=== PATIENT | male | born 1990 | race Caucasian/White ===

== ENCOUNTER 2025-05-21 20:50 | Inpatient (IN) | payer BC, OTHER ==
[~2025-05-21] VITALS: Ht 165.1 cm; Wt 108.0 kg
[2025-05-21 21:33] LABS: Hematocrit 42.9 % (41.0-53.0); Hemoglobin 15.0 g/dL (13.5-17.5); Mean Corpuscular Hemoglobin 30.7 pg (28.0-32.0); Mean Corpuscular Volume 87.9 fL (80.0-100.0); Nucleated Red Blood Cells % 0.2 %
--- NOTE | 2025-05-21 21:38 | DVH ---
EXAM: XY CHEST TWO VIEWS ROUTINE CLINICAL HISTORY: cp and sob TECHNIQUE: Frontal and lateral views of the chest WID: COMPARISON: None FINDINGS: Lines and tubes: None Chest: The heart size and pulmonary vasculature is within normal limits. No pleural effusion, pneumothorax, or consolidation. The osseous structures are grossly intact. IMPRESSION: No acute cardiopulmonary abnormality.
[2025-05-21 21:44] LABS: Potassium 4.0 mmol/L (3.5-5.1); Sodium 143 mmol/L (136-145)
[2025-05-21 21:45] LABS: Anion Gap 11 (5-15); Calcium 10.1 mg/dL (8.7-10.4); Carbon Dioxide 24 mmol/L (20-31)
[2025-05-21 21:50] LABS: BUN/Creatinine Ratio 13.0 (10.0-20.0); Blood Urea Nitrogen 14 mg/dL (9-23)
[2025-05-21 21:52] LABS: Chloride 108 mmol/L (98-107); Glucose 133 mg/dL (74-106)
--- NOTE | 2025-05-21 22:04 | ED.PDOC ---
History of Present Illness HPI Comments 35 y/o obese M presents with c/c of chest pain, heart fluttering, and bilateral leg pain. Patient reports additional sudden onset of symptoms at around 1900, this evening, after 2x week history of bilateral leg and abdominal swelling. Significant history of anxiety, GERD, seizures, "PVC's," and former tobacco cigarette user. Current medications include: pantoprazole and Keppra. Denies any prior history of symptoms in the past and any notable cardiac history, with exception of consultation for heart ablation for his PVC's. Patient denies any shortness of breath, nausea, vomiting, fever, chills, or further associated symptoms. PCP is aware of swelling complaints, and patient has an upcoming appointment in the next few weeks. Chief Complaint: Chest Pain Time Seen by MD: 21:40 Primary Care Provider: CHARLENE San Notes: Nurses Notes, Medications, Allergies Allergies: Coded Allergies: Promethazine (Verified Adverse Reaction, Severe, SWELLING, RASH, 09/01/10) Erythromycin (Verified Adverse Reaction, Unknown, 09/01/10) Sulfisoxazole (Verified Adverse Reaction, Unknown, 09/01/10) Uncoded Allergies: TREE NUTS (Allergy, HIVES, 10/20/11) Information Source: Patient Mode of Arrival: Ambulatory Severity: Moderate Timing: Hours Duration: Since onset Prehospital treatment: None Past Medical History PAST MEDICAL HISTORY: Anxiety, GERD, Seizures (On Keppra ) Past Medical History (Other): PVC's Surgical History (Other): Tendon repair Family History Family History: No family hx of DM Family History (Other): Hypercholesterolemia Social History Smoker: Cigarettes, Less Than 1 Pack/Day Alcohol: Occasionally Drugs: Denies Drug Use Lives In: Home All Other Systems: Reviewed and Negative (Comprehensive systems review obtained and negative except for what is stated in the HPI.) Physical Exam General Appearance: No Apparent Distress, Obese HEENT: Normal ENT Inspection, Pharynx Normal, TMs Normal Neck: Full Range of Motion, Non-Tender, Normal, Normal Inspection Respiratory: Chest Non-Tender, Lungs Clear, No Accessory Muscle Use, No Respiratory Distress, Normal Breath Sounds Cardiovascular: No Edema, No JVD, No Murmur, No Gallop, Normal Peripheral Pulses, Regular Rate/Rhythm Breast Exam: Deferred Gastrointestinal: No Organomegaly, Non Tender, No Pulsatile Mass, Normal Bowel Sounds, Soft Genitalia: Deferred Pelvic: Deferred Rectal: Deferred Extremities: No calf tenderness, Normal capillary refill, Normal inspection, Normal range of motion, Non-tender, No pedal edema Musculoskeletal : Apperance: Normal Neurologic: Alert, process control programmer II-XII nml as Tested, No Motor Deficits, Normal Affect, Normal Mood, No Sensory Deficits Cerebellar Function: Normal Reflexes: Normal Skin: Dry, Normal Color, Warm Lymphatic: No Adenopathy Was a procedure done? Was a procedure done?: No EKG EKG #1: Pulse Rate (adult): 102 Hustler: Normal Cardiac Rhythm: ST Block: None Hypertrophy: None ST: Normal EKG #2: Pulse Rate (adult): 95 Hustler: Normal Cardiac Rhythm: NSR Block: None Hypertrophy: None ST: Normal Differential Dx Considerations may include: LA, PE, ACS, URI, PNA, gastritis, gastroenteritis, GERD, fluid retention, ascites, atypical chest pain, among others X-Ray, Labs, Meds, VS Vital Signs Date Time Temp Pulse Resp B/P (MAP) Pulse Ox O2 Delivery O2 Flow Rate FiO2 05/21/25 22:04 95 05/21/25 21:48 95 05/21/25 20:55 102 05/21/25 20:50 98.4 94 18 128/82 (97) 96 98.4 Lab Test 05/21/25 21:52 05/21/25 20:54 Range/Units Troponin I High Sensitivity < 3 L < 3 L </=54 ng/L White Blood Count 7.8 4.4-10.8 10^3/uL Red Blood Count 4.88 4.5-5.90 10^6/uL Hemoglobin 15.0 13.5-17.5 g/dL Hematocrit 42.9 41.0-53.0 % Mean Corpuscular Volume 87.9 80.0-100.0 fL Mean Corpuscular Hemoglobin 30.7 28.0-32.0 pg Mean Corpuscular Hemoglobin Concent 34.9 32.0-36.0 g/dL Red Cell Distribution Width 13.0 11.8-14.3 % Platelet Count 341 140-450 10^3/uL Mean Platelet Volume 7.5 6.9-10.8 fL Neutrophils (%) (Auto) 54.6 37.0-80.0 % Lymphocytes (%) (Auto) 36.9 10.0-50.0 % Monocytes (%) (Auto) 6.0 0.0-12.0 % Eosinophils (%) (Auto) 1.9 0.0-7.0 % Basophils (%) (Auto) 0.6 0.0-2.0 % Neutrophils # (Auto) 4.2 1.6-8.6 10 ^3/uL Lymphocytes # (Auto) 2.9 0.4-5.4 10 ^3/uL Monocytes # (Auto) 0.5 0-1.3 10 ^3/uL Eosinophils # (Auto) 0.1 0-0.8 10 ^3/uL Basophils # (Auto) 0 0-0.2 10 ^3/uL Nucleated Red Blood Cells 0.2 % Sodium Level 143 136-145 mmol/L Potassium Level 4.0 3.5-5.1 mmol/L Chloride Level 108 H 98-107 mmol/L Carbon Dioxide Level 24 20-31 mmol/L Anion Gap 11 5-15 Blood Urea Nitrogen 14 9-23 mg/dL Creatinine 1.08 0.700-1.30 mg/dL Glomerular Filtration Rate Calc 93 >90 mL/min BUN/Creatinine Ratio 13.0 10.0-20.0 Serum Glucose 133 H 74-106 mg/dL Calcium Level 10.1 8.7-10.4 mg/dL B-Type Natriuretic Peptide 6.44 0-100 pg/mL [place] [id number] Ph: [phone] DIAGNOSTIC IMAGING Diagnostic Imaging Report : [id number] Signed PATIENT: MICHELLE DIEGO ACCT: [id number] UNIT: [id number] : 1990 LOC: ER ROOM / BED: / AGE / SEX: 35 / M ADM STATUS: REG ER SERVICE [id number] ORDERING PHYSICIAN: NIMCO FERMIN MD PROCEDURE(s): CXR2 - CHEST TWO VIEWS ROUTINE REASON: cp and sob ORDER NUMBER(s): [id number], ACCESSION NUMBER(s): [id number] EXAM: XY CHEST TWO VIEWS ROUTINE CLINICAL HISTORY: cp and sob TECHNIQUE: Frontal and lateral views of the chest WID: COMPARISON: None FINDINGS: Lines and tubes: None Chest: The heart size and pulmonary vasculature is within normal limits. No pleural effusion, pneumothorax, or consolidation. The osseous structures are grossly intact. IMPRESSION: No acute cardiopulmonary abnormality. ATED BY: YOLIE SMITH MD DICTATED DATE/TIME: 05/21/252134 SIGNED BY: YOLIE SMITH MD SIGNED DATE/TIME: 05/21/252134 CC: Time of 1ST Reevaluation: 22:10 Reevaluation 1ST: Unchanged Patient Education/Counseling: Diagnosis, Treatment Family Education/Counseling: No Family Present Additional Information Previous visits reviewed: January 10, 2010 and March 02, 2015 encounters for nausea/generalized weakness and sciatica, respectively. The following tests were ordered, and results were reviewed by me: BMP, CBC, BNP, CXR, EKG, troponin Additional Information was gathered from interviewing the following independent historians: N/A I reviewed and agreed with the following test results read by other providers: CXR I discussed treatment and results with medical personnel and: patient SEPSIS Sepsis Screen Date sepsis recognized/suspect: May 21, 2025 Time Sepsis recognized/suspect: 2049 Recent Procedure: No On Antibiotic Therapy: No Respiratory Rate >20: No Heart Rate >90: No Temp<36 C (96.8 F) or >38.3 C: No SBP <90 or MAP <65 mmHG: No New Acute Mental Status Change: No Is the patient on CPAP, BIPAP,: No Physician Orders Electrocardigram (05/21/25 20:57) Electrocardigram (05/21/25 21:57) Electrocardigram (05/21/25 23:57) Chest Two Views Routine (05/21/25 21:08) Vital Signs Date Time Temp Pulse Resp B/P (MAP) Pulse Ox O2 Delivery O2 Flow Rate FiO2 05/21/25 22:04 95 05/21/25 21:48 95 05/21/25 20:55 102 05/21/25 20:50 98.4 94 18 128/82 (97) 96 98.4 Laboratory Tests Test 05/21/25 20:54 White Blood Count 7.8 10^3/uL (4.4-10.8) Departure 1 Departure Time of Disposition: 23:22 (Patient presented with lower extremity edema that was concerning for possible STEMI, ACS, PE, Pneumonia, Muscle Strain, COPD, Dissection, Acute on Chronic systolic and Diastolic dysfunction. Data: 1. I ordered and reviewed the result of at least 3 labs including a CBC, BMP, and Troponin. 2. I independently interpreted the following tests: EKG which shows sinus arrhthmia and Chest X-ray which shows cardiomegaly.Risk:This patient has a high risk of morbidity due to further diagnostic testing or treatment and may suffer from an acute cardiac or respiratory disorder but is most consitent with an acute chf exacerbation. Patient should be admitted for further workup and possible expert consultation. ) Impression: Primary Impression: Lower extremity edema Additional Impression: Generalized weakness Disposition: ADMITTED INPATIENT Admit to: Med Surg Condition: Guarded Critical Care Note Critical Care Time?: No Stability Stability form required: No Heart Score Heart Score: Heart Score Response (Comments) Value History Moderate Suspicious 1 EKG Normal 0 Age <45 0 Risk Factors 1 or 2 risk factors 1 Troponin Normal limit 0 Total 2 I personally scribed for BEVERLY RAINEY MD ([email or web address]) on 05/21/25 at 22:04. Electronically submitted by Matthew Ortega ([email or web address]). BEVERLY RAINEY MD May 21, 2025 22:04
[2025-05-22] VITALS (10 sets, daily range): BP systolic 115–138; BP diastolic 55–100; PULSE 72–93; RESP 16–20; TEMP 97.7–98.7; O2SAT 95–99
[2025-05-22] MEDS ORDERED: MORPHINE SULFATE INJ 2 MG/ml SYRG IV PRN (00:15)
[2025-05-22] MEDS ORDERED: NITROGLYCERIN 0.4 MG SL TAB SL PRN (00:15)
--- NOTE | 2025-05-22 00:30 | DVHHP2 ---
History of Present Illness History of Present Illness Patient is 35 years old male with past medical history of seizure, anxiety, GERD, PVCs, IBS came with a complaint of chest pain. As per patient he started having chest pain around 7:00 p.m. last night, sudden onset, left-sided chest pain, 10, crampy in nature, lasted for 15 minutes, increased with walking. Patient also endorsed occasional palpitation for last 3-4 days. As per patient his legs are swollen for last 3-4 days, patient also reported gaining weight almost 30 lb in last 2 weeks. On further inquiry patient reports having altered bowel movement. Patient reported that he has been diagnosed with PVCs since 2020, saw a saw setter who recommended for cardiac ablation therapy. Patient went for evaluation for cardiac ablation therapy but as he did not have frequent PVCs, so no cardiac ablation was done as per patient. Initial lab workup revealed negative for troponin I, BNP 6.44. EKG revealed sinus tachycardia with a rate 102, no PVCs. Past Medical History seizure, anxiety, GERD, PVCs, IBS Past Surgical History Right Leg surgery Family History Mom has diabetes mellitus, dad has hypertension Past Social History , smokes cigarettes half a pack to 2 pack per day, occasional alcoholic, denies substance abuse, lives with . Meds Keppra 750 mg in the morning and 500 mg at night, pantoprazole Review of Systems Review of Systems Allergy- NKDA Patient was seen today at the bedside. Respiratory denies cough or or wheezing Gastrointestinal- denies any rectal bleeding, nausea or vomiting Musculoskeletal-denies acute joint swelling or tenderness or redness Neurological- denies acute dysarthria, dysphagia, change in vision Psychiatry- denies depression or SI or HI Skin- denies acute rash or purpura Allergies: Coded Allergies: Promethazine (Verified Adverse Reaction, Severe, SWELLING, RASH, 09/01/10) Erythromycin (Verified Adverse Reaction, Unknown, 09/01/10) Sulfisoxazole (Verified Adverse Reaction, Unknown, 09/01/10) Uncoded Allergies: TREE NUTS (Allergy, Unknown, HIVES, 05/22/25) Medications Current Medications Medications Dose Ordered Sig/Rosalie Route Start Time Stop Time Status Last Admin Dose Admin Sodium Chloride 10 ml Q8HR IV 05/22/25 06:00 Nitroglycerin 0.4 mg Q5MINP PRN SL 05/22/25 00:15 Morphine Sulfate 2 mg Q30M PRN IV 05/22/25 00:15 Exam Vital Signs Vital Signs Date Time Temp Pulse Resp B/P (MAP) Pulse Ox O2 Delivery O2 Flow Rate FiO2 05/21/25 23:47 92 05/21/25 23:43 98.3 20 128/85 (99) 95 98.3 Exam General examination- awake, alert, not in any distress HEENT- PEERLA, no acute nasal discharge Cardiovascular- S1-S2 audible, rate and rhythm regular, no murmur Respiratory- CTAB, no wheeze or rhonchi Gastrointestinal-nontender, bowel sound+. Nondistended Musculoskeletal-no acute joint swelling or tenderness or redness Lower extremity- no leg edema Neurological- cranial nerves intact, no acute dysarthria or dysphagia Psychiatry- denies depression or SI or HI Skin- no acute rash or purpura Labs/Xrays Labs Test 05/21/25 21:52 05/21/25 20:54 Range/Units Troponin I High Sensitivity < 3 L </=54 ng/L White Blood Count 7.8 4.4-10.8 10^3/uL Red Blood Count 4.88 4.5-5.90 10^6/uL Hemoglobin 15.0 13.5-17.5 g/dL Hematocrit 42.9 41.0-53.0 % Mean Corpuscular Volume 87.9 80.0-100.0 fL Mean Corpuscular Hemoglobin 30.7 28.0-32.0 pg Mean Corpuscular Hemoglobin Concent 34.9 32.0-36.0 g/dL Red Cell Distribution Width 13.0 11.8-14.3 % Platelet Count 341 140-450 10^3/uL Mean Platelet Volume 7.5 6.9-10.8 fL Neutrophils (%) (Auto) 54.6 37.0-80.0 % Lymphocytes (%) (Auto) 36.9 10.0-50.0 % Monocytes (%) (Auto) 6.0 0.0-12.0 % Eosinophils (%) (Auto) 1.9 0.0-7.0 % Basophils (%) (Auto) 0.6 0.0-2.0 % Neutrophils # (Auto) 4.2 1.6-8.6 10 ^3/uL Lymphocytes # (Auto) 2.9 0.4-5.4 10 ^3/uL Monocytes # (Auto) 0.5 0-1.3 10 ^3/uL Eosinophils # (Auto) 0.1 0-0.8 10 ^3/uL Basophils # (Auto) 0 0-0.2 10 ^3/uL Nucleated Red Blood Cells 0.2 % Sodium Level 143 136-145 mmol/L Potassium Level 4.0 3.5-5.1 mmol/L Chloride Level 108 H 98-107 mmol/L Carbon Dioxide Level 24 20-31 mmol/L Anion Gap 11 5-15 Blood Urea Nitrogen 14 9-23 mg/dL Creatinine 1.08 0.700-1.30 mg/dL Glomerular Filtration Rate Calc 93 >90 mL/min BUN/Creatinine Ratio 13.0 10.0-20.0 Serum Glucose 133 H 74-106 mg/dL Calcium Level 10.1 8.7-10.4 mg/dL B-Type Natriuretic Peptide 6.44 0-100 pg/mL Assessment/Plan Assessment/Plan Assessment and plan # Acute chest pain, rule out acute coronary syndrome -EKG with sinus tachycardia, no PVCs -troponin I with a normal limit -continue aspirin 80 mg p.o. daily Continue atorvastatin 40 mg p.o. q.h.s. -pending echo 2D # seizure disorder -continue Keppra 750 mg p.o. a.m. and 500 mg p.o. at night # bilateral leg swelling -Doppler study of the bilateral lower extremity -negative for DVT # history of PVCs-EKG with sinus rhythm, no PVC # weight gain # anxiety # IBS -Monitor bowel habit # GERD -continue pantoprazole 40 mg p.o. daily PCP-Lazara Sapp MD Cardiology-Vicky Xie Goals of care, Code status ; discussed with >15 minutes PUD prophylaxis: Pantoprazole DVT prophylaxis: Patient ambulating Plan discussed with Dr. Grimes , nursing staff, Total time spent on patient evaluation, chart review, assessment and plan, discussion discussion >35 minutes Plan discussed with: Patient, Other (RN) My Orders Orders - [facility] [place] RESIDENT Procedure Category Date Status Time Admit ADMIT 05/22/25 Transmitted 00:14 Code Status CODE 05/22/25 Transmitted 00:14 Sodium Chloride Lock PHA 05/22/25 Logged (Saline Lock Ns) 06:00 Complete Blood Count LAB 05/23/25 Verified 04:00 Comprehensive LAB 05/23/25 Verified Metabolic Panel 04:00 Echo 2d Mode Cardiac US 05/22/25 Logged DOP 00:14 Nitroglycerin PHA 05/22/25 Logged Sublingual (Ntrostat 00:15 Morphine Sulfate PHA 05/22/25 Logged Injection 00:15 Stat Ekg For Chest LILIAN 05/22/25 In Process Pain 00:14 Notify Md Of Changes [facility] 05/22/25 In Process From Base 00:14 Diesel Technology Instructor For LILIAN 05/22/25 In Process 24 Hours 00:14 Aspirin Tablet PHA 05/22/25 Verified 10:00 Aspirin Tablet [facility] 05/22/25 Verified 00:30 Atorvastatin (Lipitor) PHA 05/22/25 Verified 22:00 Atorvastatin (Lipitor) PHA 05/22/25 Verified 00:30 Pantoprazole Tablet [facility] 05/22/25 Verified (Protonix Tablet) 00:30 Pantoprazole Tablet [facility] 05/22/25 Verified (Protonix Tablet) 06:00 Levetiracetam Tablet [facility] 05/22/25 Verified (Keppra Tablet) 08:00 Levetiracetam Tablet [facility] 05/22/25 Verified (Keppra Tablet) 20:00 Date of Service: May 22, 2025 Billing Provider: PEPE GRIMES MD Common Visit Codes: [id number] INP/OBS CARE (HIGH) Secondary Visit Codes: [id number] CARE PLAN 30 MINUTES [facility] RESIDENT May 22, 2025 00:30
--- NOTE | 2025-05-22 01:35 | DVH ---
Bilateral lower extremity venous duplex Clinical History: History of bilateral leg swelling Comparison: None Technique: Duplex Doppler evaluation of the deep venous systems of both lower extremities from the common femora l veins to the popliteal veins including color Doppler and spectral/pulsed waveform analysis was perf ormed. Findings: RIGHT SIDE: The common femoral vein demonstrates appropriate compressibility and waveform variability. There is compressibility/patency of the great saphenous vein at the proximal thigh. The femoral vein demonstrates appropriate compressibility and waveform variability. The deep femoral vein demonstrates appropriate compressibility and waveform variability. The popliteal vein demonstrates appropriate compressibility and waveform variability. There is normal compressibility at the tibioperoneal trunk. LEFT SIDE: The common femoral vein demonstrates appropriate compressibility and waveform variability. There is compressibility/patency of the great saphenous vein at the proximal thigh. The femoral vein demonstrates appropriate compressibility and waveform variability. The deep femoral vein demonstrates appropriate compressibility and waveform variability. The popliteal vein demonstrates appropriate compressibility and waveform variability. There is normal compressibility at the tibioperoneal trunk. Impression: 1. No right or left femoropopliteal venous thrombosis.
--- NOTE | 2025-05-22 01:36 | ECG ---
[facility] Test Date: 2025-05-21 Test Time: 20:55:46 Pat Name: MICHELLE DIEGO Department: ED Room: 0277T Gender: M Communication Specialist: IAN : 1990 Requested By: BEVERLY RAINEY Order Number: [id number] Reading MD: Jose Dunne Measurements Intervals [place] Rate: 102 P: 52 MD: 160 QRS: 13 QRSD: 76 T: 47 QT: 351 QTc: 458 Interpretive Statements Sinus tachycardia Electronically Signed On 05-24-2025 9:51:00 PDT by Jose Dunne Please click the below link to view image of tracing.
--- NOTE | 2025-05-22 01:37 | ECG ---
[facility] Test Date: 2025-05-21 Test Time: 23:47:34 Pat Name: MICHELLE DIEGO Department: ER Room: 0277T Gender: M Gyroscopic Engineering Technician: RAFITA : 1990 Requested By: BEVERLY RAINEY Order Number: [id number] Reading MD: Jose Dunne Measurements Intervals [place] Rate: 92 P: 48 KS: 157 QRS: 3 QRSD: 71 T: 47 QT: 356 QTc: 441 Interpretive Statements Sinus rhythm Electronically Signed On 05-24-2025 9:51:42 PDT by Jose Dunne Please click the below link to view image of tracing.
[2025-05-22] MEDS: ATORVASTATIN 20 MG TAB PO ONE (02:01)
[2025-05-22] MEDS: PANTOPRAZOLE 40 MG TAB PO ONE (02:02)
[2025-05-22] MEDS ORDERED: PANT40TA2 PO (04:13)
[2025-05-22] MEDS ORDERED: LEVE500T40 PO (04:13)
[2025-05-22] MEDS: SODIUM CHLOR 0.9% PF (SALINE LOCK) 10ML VIAL/SYR IV SCH (05:55)
[2025-05-22] MEDS: PANTOPRAZOLE 40 MG TAB PO SCH (05:55)
--- NOTE | 2025-05-22 06:14 | ECG ---
[facility] Test Date: 2025-05-21 Test Time: 21:48:50 Pat Name: MICHELLE DIEGO Department: ED Room: 0277T Gender: M Network Operations Center Technician: angely : 1990 Requested By: BEVERLY RAINEY Order Number: [id number] Reading MD: Jose Dunne Measurements Intervals [place] Rate: 95 P: 29 RI: 157 QRS: 9 QRSD: 78 T: 54 QT: 357 QTc: 449 Interpretive Statements Sinus rhythm ST elev, probable normal early repol pattern Baseline wander in lead(s) II,III,aVF Electronically Signed On 05-24-2025 9:51:16 PDT by Jose Dunne Please click the below link to view image of tracing.
[2025-05-22 06:38] LABS: Urine Protein, UAD Negative (Negative)
[2025-05-22] MEDS: levETIRAcetam 500 MG TAB PO SCH ×2 (08:06→20:58)
[2025-05-22 10:28] LABS: Amphetamine Screen, Urine Neg (NEGATIVE); Barbiturate Scree,Urine Neg (NEGATIVE); Benzodiazephine Screen, Urine Neg (NEGATIVE); Cannabinoid Screen, Urine Neg (NEGATIVE); Cocaine Screen, Urine Neg (NEGATIVE); Opiate Scree,Urine Neg (NEGATIVE); Phencyclidine Screen, Urine Neg (NEGATIVE)
[2025-05-22] MEDS ORDERED: levETIRAcetam 500 MG TAB PO SCH (16:30)
[2025-05-22] MEDS: ATORVASTATIN 20 MG TAB PO SCH (20:58)
[2025-05-23] VITALS (8 sets, daily range): BP systolic 109–134; BP diastolic 79–88; PULSE 74–94; RESP 16–20; TEMP 97.9–98.6; O2SAT 95–98
[2025-05-23 06:30] LABS: Hematocrit 40.5 % (41.0-53.0); Hemoglobin 14.2 g/dL (13.5-17.5); Mean Corpuscular Hemoglobin 30.5 pg (28.0-32.0); Mean Corpuscular Volume 87.1 fL (80.0-100.0); Nucleated Red Blood Cells % 0.1 %
[2025-05-23 06:46] LABS: Albumin 4.5 g/dL (3.2-4.8); Alkaline Phosphatase 52 U/L (46-116); Anion Gap 11 (5-15); BUN/Creatinine Ratio 14.6 (10.0-20.0); Blood Urea Nitrogen 14 mg/dL (9-23); Calcium 10.0 mg/dL (8.7-10.4); Carbon Dioxide 24 mmol/L (20-31); Glucose 89 mg/dL (74-106); Potassium 3.9 mmol/L (3.5-5.1); Sodium 142 mmol/L (136-145); Total Protein 6.7 g/dL (5.7-8.2)
[2025-05-23 06:47] LABS: Bilirubin, Total 0.7 mg/dL (0.2-1.0)
[2025-05-23 07:05] LABS: Alanine Aminotransferase 106 U/L (7-40); Chloride 107 mmol/L (98-107)
[2025-05-23] MEDS: levETIRAcetam 500 MG TAB PO SCH (09:04)
[2025-05-23] MEDS ORDERED: levETIRAcetam 500 MG TAB PO SCH (10:00)
--- NOTE | 2025-05-23 11:56 | DVHPN2 ---
Reviewed: Care Plan, H&P, Labs, Medications, Previous Orders, Radiology Changes from previous H/P or p: No Changes Objective Vitals Vital Signs Date Time Temp Pulse Resp B/P (MAP) Pulse Ox O2 Delivery O2 Flow Rate FiO2 05/23/25 09:00 98.1 77 20 118/82 (94) 96 98.1 05/23/25 07:49 Room Air* 0 21 Intake/Output Intake and Output 05/23/25 07:00 Intake Total 600 ml Balance 600 ml Intake Oral 600 ml # Voids 6 # Bowel Movements 2 Medications Current Medications Medications Dose Ordered Sig/Rosalie Route Start Time Stop Time Status Last Admin Dose Admin Sodium Chloride 10 ml Q8HR IV 05/22/25 06:00 05/23/25 09:03 10 ML Nitroglycerin 0.4 mg Q5MINP PRN SL 05/22/25 00:15 Morphine Sulfate 2 mg Q30M PRN IV 05/22/25 00:15 Aspirin 81 mg DAILY PO 05/22/25 10:00 05/23/25 09:02 81 MG Atorvastatin Calcium 40 mg HS PO 05/22/25 22:00 05/22/25 20:58 40 MG Pantoprazole Sodium 40 mg DAILY@0600 PO 05/22/25 06:00 05/23/25 05:08 40 MG Levetiracetam 750 mg DAILY PO 05/23/25 10:00 05/23/25 09:04 750 MG Levetiracetam 500 mg HS PO 05/22/25 22:00 05/22/25 20:58 500 MG Laboratory Results Laboratory Tests 05/23/25 05:28 Chemistry Test 05/23/25 05:28 Albumin 4.5 g/dL (3.2-4.8) Calcium Level 10.0 mg/dL (8.7-10.4) Total Protein 6.7 g/dL (5.7-8.2) LFT Test 05/23/25 05:28 Alanine Aminotransferase (ALT) 106 U/L (7-40) H Alkaline Phosphatase 52 U/L (46-116) Aspartate Amino Transferase (AST) 64 U/L (13-40) H Total Bilirubin 0.7 mg/dL (0.2-1.0) Urinalysis Test 05/22/25 05:43 Urine Color Yellow (Yellow) Urine Clarity Clear (Clear) Urine pH 6.0 (5.0-9.0) Urine Specific [place] 1.027 (1.001-1.035) Urine Protein Negative (Negative) Urine Ketones Negative (Negative) Urine Blood Negative /uL (Negative) Urine Nitrite Negative (Negative) Urine Bilirubin Negative (Negative) Urine Urobilinogen 2 mg/dL (Negative) H Urine Leukocyte Esterase Negative /uL (Negative) Urine RBC 1 /hpf (0 - 3) Urine Microscopic WBC 1 /HPF (0-3) Urine Squamous Epithelial Cells None seen /hpf (<5) Urine Bacteria None seen /hpf (None Seen) Urine Mucus Few (None Seen) Urine Glucose Normal mg/dL (Normal) Labs and/or images reviewed: Labs reviewed by me, Image(s) reviewed by me Assessment/Plan Assessment/Plan Acute chest pain rule out coronary artery disease troponin negative x3 aspirin Lipitor consult for Dr. Ksenia Angelo Bilateral leg edema History of PVCs Anxiety Irritable bowel syndrome GERD X-ray negative DVT ruled out Plan discussed with: Patient Date of Service: May 23, 2025 Billing Provider: CLARE DAIGLE MD Common Visit Codes: [id number] INP/OBS CARE(HIGH) CLARE DAIGLE MD May 23, 2025 11:56
--- NOTE | 2025-05-23 15:14 | DVHSR ---
APPROVED REPORT EXAM: Two-dimensional and M-mode echocardiogram with Doppler and color Doppler. Blood Pressure: 115/67 mmHg INDICATION Chest Pain RISK FACTORS Height: 5' 5", Weight: 229 DIMENSIONS LVDd4.9 (3.8-5.7cm)LA (2D)3.2 (1.9-4.0cm)Aortic Root4.1 (2.0-3.7cm) LVDs3.6 (2.5-4.0cm)LA (MM) (1.9-4.0cm)Aortic Cusp Exc2.2 (1.5-2.0cm) EF (%) 55.0 (55-70%)Rt. Atrium2.9 (1.9-4.0cm)Asc. Aorta cm IVSd1.1 (0.7-1.1cm)RV (D) (1.8-2.4cm) PWd1.0 (0.7-1.1cm) Mitral Valve MitralMitral Stenosis E wave1.00m/sMV Mean GR.mmHg A wave0.70m/sMV Peak GR.mmHg E/A ratio1.42D MVAcm2 Aortic Valve Aortic ValveAortic Stenosis V10.90m/Pradip Mean GR.3mmHg V21.10m/Pradip Peak GR.5mmHg LVOT Diameter2.4 (1.8-2.4cm)Doppler AVA3.70cm2 Pulmonic Valve V20.50m/s Conclusion lvef 60% by visual estimate normla rv function RV borderline enlarged normal atria no severe valve abnormalites noted
--- NOTE | 2025-05-23 18:04 | DVHINCON2 ---
Date Seen: May 23, 2025 Referring Physician MD Alexi Reason for Consultation Chest pain History of Present Illness This is a 35-year-old male patient who presents to the emergency room with chief complaint of chest pain. The patient reports that the chest pain began at 7:00 p.m. two days ago while sitting at home. He describes the pain as unprovoked, intermittent, squeezing in nature, left-sided and nonradiating. He denies any associated symptoms. He also complains of bilateral lower extremity edema for one week. Initial twelve lead electrocardiogram reveals sinus tachycardia without any significant ST segment changes. Troponin levels have been negative. Significant past medical history includes PVCs, hyperlipidemia, seizures, irritable bowel syndrome, Guillain-Bloomington syndrome in 2014, anxiety, tobacco use and obesity. Past Medical History Past medical history reviewed. No other significant than mentioned above. Past Surgical History Right leg tendon repair Family History Family history reviewed. Social History Patient has a 16 pack-year history, quit smoking approximately one month ago Denies any illicit drug use Denies any alcohol use Allergies: Coded Allergies: Promethazine (Verified Adverse Reaction, Severe, SWELLING, RASH, 09/01/10) Erythromycin (Verified Adverse Reaction, Unknown, 09/01/10) Sulfisoxazole (Verified Adverse Reaction, Unknown, 09/01/10) Uncoded Allergies: TREE NUTS (Allergy, Unknown, HIVES, 05/22/25) Home Meds Reported Medications Pantoprazole Sodium Sesquihydr (Protonix) 40 Mg Tab, 40 MG PO DAILY, #30 TAB 05/22/25 Levetiracetam (Keppra) 500 Mg Tab, 1.5 TAB PO BID for seizures, #180 TAB 3 Refills 05/22/25 Home Meds Home medications reviewed. Current Medications Current Medications Medications (Trade) Dose Ordered Sig/Rosalie Route PRN Reason Start Time Stop Time Status Last Admin Atorvastatin Calcium (Lipitor) 40 mg HS PO 05/22/25 22:00 05/22/25 20:58 Levetiracetam (Keppra Tablet) 750 mg DAILY PO 05/23/25 10:00 05/22/25 14:26 DC Levetiracetam (Keppra Tablet) 750 mg DAILY PO 05/23/25 10:00 05/23/25 09:04 Levetiracetam (Keppra Tablet) 500 mg HS PO 05/22/25 22:00 05/22/25 20:58 Review of Systems Constitutional: No symptom reported Ears, Nose, & Throat: No symptom reported Eyes: No symptom reported Neurological: No symptoms reported Pulmonary/Respiratory: No symptoms reported Cardiovascular: Chest pain Gastrointestinal: No symptom reported Genitourinary: No symptom reported Musculoskeletal: No symptom reported Skin: No symptom reported Psychiatric: No symptom reported Endocrine: No symptom reported Hematologic/Lymphatic: No symptom reported Vital Signs Vital Signs Date Time Temp Pulse Resp B/P (MAP) Pulse Ox O2 Delivery O2 Flow Rate FiO2 05/23/25 17:00 98.2 82 18 134/88 (103) 95 98.2 05/23/25 07:49 Room Air* 0 21 Physical Exam General Appearance: Cooperative. Well-developed. Well-nourished. No acute distress. Pulmonary/Respiratory: Clear, bilateral breaths sounds. Cardiovascular/Chest: Regular rate and rhythm. Peripheral Pulses: 2+ Radial (R). 2+ Radial (L). 2+ Pedal (R). 2+ Pedal (L) Abdominal Exam: Normal bowel sounds. Ankle Exam: Negative ankle edema Lower extremities: Negative lower extremity edema Neuro/Mental Status: A/OX4, coherent. Thoughts/Psych: Normal thought pattern. Appropriate mood and affect. Good judgment and insight. Appearance: No acute distress. Skin Exam: Normal inspection. Normal color. Warm and dry. Labs/Diagnostic Data Labs Test 05/23/25 05:28 05/22/25 05:43 05/22/25 04:29 05/21/25 21:52 Range/Units White Blood Count 6.6 4.4-10.8 10^3/uL Red Blood Count 4.65 4.5-5.90 10^6/uL Hemoglobin 14.2 13.5-17.5 g/dL Hematocrit 40.5 L 41.0-53.0 % Mean Corpuscular Volume 87.1 80.0-100.0 fL Mean Corpuscular Hemoglobin 30.5 28.0-32.0 pg Mean Corpuscular Hemoglobin Concent 35.1 32.0-36.0 g/dL Red Cell Distribution Width 12.9 11.8-14.3 % Platelet Count 292 140-450 10^3/uL Mean Platelet Volume 7.5 6.9-10.8 fL Neutrophils (%) (Auto) 56.1 37.0-80.0 % Lymphocytes (%) (Auto) 34.2 10.0-50.0 % Monocytes (%) (Auto) 7.0 0.0-12.0 % Eosinophils (%) (Auto) 2.2 0.0-7.0 % Basophils (%) (Auto) 0.5 0.0-2.0 % Neutrophils # (Auto) 3.7 1.6-8.6 10 ^3/uL Lymphocytes # (Auto) 2.3 0.4-5.4 10 ^3/uL Monocytes # (Auto) 0.5 0-1.3 10 ^3/uL Eosinophils # (Auto) 0.1 0-0.8 10 ^3/uL Basophils # (Auto) 0 0-0.2 10 ^3/uL Nucleated Red Blood Cells 0.1 % Sodium Level 142 136-145 mmol/L Potassium Level 3.9 3.5-5.1 mmol/L Chloride Level 107 98-107 mmol/L Carbon Dioxide Level 24 20-31 mmol/L Anion Gap 11 5-15 Blood Urea Nitrogen 14 9-23 mg/dL Creatinine 0.96 0.700-1.30 mg/dL Glomerular Filtration Rate Calc 107 >90 mL/min BUN/Creatinine Ratio 14.6 10.0-20.0 Serum Glucose 89 74-106 mg/dL Calcium Level 10.0 8.7-10.4 mg/dL Total Bilirubin 0.7 0.2-1.0 mg/dL Aspartate Amino Transferase (AST) 64 H 13-40 U/L Alanine Aminotransferase (ALT) 106 H 7-40 U/L Alkaline Phosphatase 52 46-116 U/L Total Protein 6.7 5.7-8.2 g/dL Albumin 4.5 3.2-4.8 g/dL Urine Color Yellow Yellow Urine Clarity Clear Clear Urine pH 6.0 5.0-9.0 Urine Specific [place] 1.027 1.001-1.035 Urine Protein Negative Negative Urine Ketones Negative Negative Urine Blood Negative Negative /uL Urine Nitrite Negative Negative Urine Bilirubin Negative Negative Urine Urobilinogen 2 H Negative mg/dL Urine Leukocyte Esterase Negative Negative /uL Urine RBC 1 0 - 3 /hpf Urine Microscopic WBC 1 0-3 /HPF Urine Squamous Epithelial Cells None seen <5 /hpf Urine Bacteria None seen None Seen /hpf Urine Mucus Few None Seen Urine Glucose Normal Normal mg/dL Urine Opiates Screen Neg NEGATIVE Urine Fentanyl Screen Neg NEGATIVE Urine Barbiturates Screen Neg NEGATIVE Urine Phencyclidine Screen Neg NEGATIVE Urine Amphetamines Screen Neg NEGATIVE Urine Benzodiazepines Screen Neg NEGATIVE Urine Cocaine Screen Neg NEGATIVE Urine Cannabinoids Screen Neg NEGATIVE Hemoglobin A1c 5.3 <5.7 % A1C Magnesium Level 2.0 1.6-2.6 mg/dL Troponin I High Sensitivity < 3 L </=54 ng/L Test 05/21/25 20:54 Range/Units B-Type Natriuretic Peptide 6.44 0-100 pg/mL Thyroid Stimulating Hormone (TSH) 1.83 0.55-4.78 uIU/mL Plasma/Serum Blood Alcohol < 3.0 <10 mg/dL Assessment Chest pain, likely noncardiac Hyperlipidemia History of PVCs Seizures Anxiety Transaminitis Tobacco use Obesity Plan/Recommendation We will continue with the following plan/recommendations (Dr. Mccormack): Case discussed with . A transthoracic echocardiogram revealed EF of 60% with no severe valve abnormalities noted. Given the patient's clinical presentation, unremarkable troponin level, and unremarkable twelve lead electrocardiogram, doubt ACS. There is no further inpatient cardiac workup indicated at this time. The patient states he does follow up with a milk delivery driver in the outpatient setting regarding his PVCs. Recommend for patient to follow up with a primary milk delivery driver. Thank you for allowing us to care for this patient. Please call with any questions or concerns. Critical care time spent: 44 minutes This medical document was created using an electronic medical record system with voice recognition software and computerized dictation system. Although this document has been carefully reviewed, there might still be some phonetic and typographical errors. Occasional wrong-word or ``sound-alike substitutions may have occurred due to the inherent limitations of voice recognition software. These areas are purely typographical due to imperfections of the software programs and do not reflect any compromise in the patient's medical care. Please read the chart carefully and recognize, using context, where these substitutions have occurred. Plan discussed with: Patient NYHA Physical activity limitations: NA Date of Service: May 23, 2025 Billing Provider: ADRIANA GONZALEZ Cardiology Common Codes: [id number] INP/OBS CARE (High) Cardiology Consultation Codes: [id number] CONSULT <45MIN ADRIANA GONZALEZ May 23, 2025 18:04
[2025-05-24 01:00] VITALS: BP 109/74; PULSE 75; RESP 17; TEMP 98.4; O2SAT 93
[2025-05-24 05:00] VITALS: BP 109/73; PULSE 65; RESP 18; TEMP 98.4; O2SAT 94
[2025-05-24 08:00] VITALS: PULSE 71
[2025-05-24 08:05] VITALS: PULSE 76; RESP 20; O2SAT 97
[2025-05-24 08:30] VITALS: BP 130/78; PULSE 76; RESP 20; TEMP 98.1; O2SAT 97
--- NOTE | 2025-05-24 09:20 | DVHPN2 ---
Reviewed: Care Plan, H&P, Labs, Medications, Previous Orders, Radiology Changes from previous H/P or p: No Changes Objective Vitals Vital Signs Date Time Temp Pulse Resp B/P (MAP) Pulse Ox O2 Delivery O2 Flow Rate FiO2 05/24/25 05:00 98.4 65 18 109/73 (85) 94 98.4 05/23/25 20:00 Room Air* 0 21 Intake/Output Intake and Output 05/24/25 07:00 Intake Total 1425 ml Balance 1425 ml Intake Oral 1425 ml # Voids 7 Medications Current Medications Medications Dose Ordered Sig/Rosalie Route Start Time Stop Time Status Last Admin Dose Admin Sodium Chloride 10 ml Q8HR IV 05/22/25 06:00 05/24/25 05:56 10 ML Nitroglycerin 0.4 mg Q5MINP PRN SL 05/22/25 00:15 Morphine Sulfate 2 mg Q30M PRN IV 05/22/25 00:15 Aspirin 81 mg DAILY PO 05/22/25 10:00 05/23/25 09:02 81 MG Atorvastatin Calcium 40 mg HS PO 05/22/25 22:00 05/23/25 21:51 40 MG Pantoprazole Sodium 40 mg DAILY@0600 PO 05/22/25 06:00 05/24/25 06:02 40 MG Levetiracetam 750 mg DAILY PO 05/23/25 10:00 05/23/25 09:04 750 MG Levetiracetam 500 mg HS PO 05/22/25 22:00 05/23/25 21:51 500 MG Laboratory Results Laboratory Tests 05/23/25 05:28 Urinalysis Test 05/22/25 05:43 Urine Color Yellow (Yellow) Urine Clarity Clear (Clear) Urine pH 6.0 (5.0-9.0) Urine Specific [place] 1.027 (1.001-1.035) Urine Protein Negative (Negative) Urine Ketones Negative (Negative) Urine Blood Negative /uL (Negative) Urine Nitrite Negative (Negative) Urine Bilirubin Negative (Negative) Urine Urobilinogen 2 mg/dL (Negative) H Urine Leukocyte Esterase Negative /uL (Negative) Urine RBC 1 /hpf (0 - 3) Urine Microscopic WBC 1 /HPF (0-3) Urine Squamous Epithelial Cells None seen /hpf (<5) Urine Bacteria None seen /hpf (None Seen) Urine Mucus Few (None Seen) Urine Glucose Normal mg/dL (Normal) Labs and/or images reviewed: Labs reviewed by me, Image(s) reviewed by me Assessment/Plan Assessment/Plan Non Cardiac chest pain, troponin negative x3 aspirin Lipitor consult for Dr. Mccormack appreciated, echo 60 percent ejection fraction, no further cardiac workup, cleared for discharge Seizures Keppra Bilateral leg edema History of PVCs patient follow up with his primary senior actuarial analyst as an outpatient Anxiety Nicotine abuse: Counseled Irritable bowel syndrome GERD X-ray negative DVT ruled out Plan discussed with: Patient My Orders Orders - CLARE DAIGLE MD Procedure Category Date Status Time * Cardiology Consult CONS 05/23/25 Transmitted 11:51 Date of Service: May 24, 2025 Billing Provider: CLARE DAIGLE MD Common Visit Codes: [id number] INP/OBS CARE(HIGH) CLARE DAIGLE MD May 24, 2025 09:20
--- NOTE | 2025-05-24 09:23 | DVHDS2 ---
Discharge Summary Date of Admission May 22, 2025 at 00:14 Date of Discharge: May 24, 2025 Admitting Diagnosis Chest pain Wounds: None Labs/Diagnostic Data: Laboratory Results Test 05/23/25 05:28 05/22/25 05:43 05/22/25 04:29 05/21/25 21:52 White Blood Count 6.6 10^3/uL (4.4-10.8) Red Blood Count 4.65 10^6/uL (4.5-5.90) Hemoglobin 14.2 g/dL (13.5-17.5) Hematocrit 40.5 % (41.0-53.0) Mean Corpuscular Volume 87.1 fL (80.0-100.0) Mean Corpuscular Hemoglobin 30.5 pg (28.0-32.0) Mean Corpuscular Hemoglobin Concent 35.1 g/dL (32.0-36.0) Red Cell Distribution Width 12.9 % (11.8-14.3) Platelet Count 292 10^3/uL (140-450) Mean Platelet Volume 7.5 fL (6.9-10.8) Neutrophils (%) (Auto) 56.1 % (37.0-80.0) Lymphocytes (%) (Auto) 34.2 % (10.0-50.0) Monocytes (%) (Auto) 7.0 % (0.0-12.0) Eosinophils (%) (Auto) 2.2 % (0.0-7.0) Basophils (%) (Auto) 0.5 % (0.0-2.0) Neutrophils # (Auto) 3.7 10 ^3/uL (1.6-8.6) Lymphocytes # (Auto) 2.3 10 ^3/uL (0.4-5.4) Monocytes # (Auto) 0.5 10 ^3/uL (0-1.3) Eosinophils # (Auto) 0.1 10 ^3/uL (0-0.8) Basophils # (Auto) 0 10 ^3/uL (0-0.2) Nucleated Red Blood Cells 0.1 % Sodium Level 142 mmol/L (136-145) Potassium Level 3.9 mmol/L (3.5-5.1) Chloride Level 107 mmol/L (98-107) Carbon Dioxide Level 24 mmol/L (20-31) Anion Gap 11 (5-15) Blood Urea Nitrogen 14 mg/dL (9-23) Creatinine 0.96 mg/dL (0.700-1.30) Glomerular Filtration Rate Calc 107 mL/min (>90) BUN/Creatinine Ratio 14.6 (10.0-20.0) Serum Glucose 89 mg/dL (74-106) Calcium Level 10.0 mg/dL (8.7-10.4) Total Bilirubin 0.7 mg/dL (0.2-1.0) Aspartate Amino Transferase (AST) 64 U/L (13-40) Alanine Aminotransferase (ALT) 106 U/L (7-40) Alkaline Phosphatase 52 U/L (46-116) Total Protein 6.7 g/dL (5.7-8.2) Albumin 4.5 g/dL (3.2-4.8) Urine Color Yellow (Yellow) Urine Clarity Clear (Clear) Urine pH 6.0 (5.0-9.0) Urine Specific [place] 1.027 (1.001-1.035) Urine Protein Negative (Negative) Urine Ketones Negative (Negative) Urine Blood Negative /uL (Negative) Urine Nitrite Negative (Negative) Urine Bilirubin Negative (Negative) Urine Urobilinogen 2 mg/dL (Negative) Urine Leukocyte Esterase Negative /uL (Negative) Urine RBC 1 /hpf (0 - 3) Urine Microscopic WBC 1 /HPF (0-3) Urine Squamous Epithelial Cells None seen /hpf (<5) Urine Bacteria None seen /hpf (None Seen) Urine Mucus Few (None Seen) Urine Glucose Normal mg/dL (Normal) Urine Opiates Screen Neg (NEGATIVE) Urine Fentanyl Screen Neg (NEGATIVE) Urine Barbiturates Screen Neg (NEGATIVE) Urine Phencyclidine Screen Neg (NEGATIVE) Urine Amphetamines Screen Neg (NEGATIVE) Urine Benzodiazepines Screen Neg (NEGATIVE) Urine Cocaine Screen Neg (NEGATIVE) Urine Cannabinoids Screen Neg (NEGATIVE) Hemoglobin A1c 5.3 % A1C (<5.7) Magnesium Level 2.0 mg/dL (1.6-2.6) Troponin I High Sensitivity < 3 ng/L (</=54) Test 05/21/25 20:54 B-Type Natriuretic Peptide 6.44 pg/mL (0-100) Thyroid Stimulating Hormone (TSH) 1.83 uIU/mL (0.55-4.78) Plasma/Serum Blood Alcohol < 3.0 mg/dL (<10) Other Laboratory Tests 05/23/25 05:28 Brief Hx & Hospital Course: 5-year-old male with a history of anxiety smoking seizures came in complaining of chest pain and bilateral leg swelling. Chest x-ray negative DVT was ruled out troponin negative x3 cardiology consult by Dr. Mccormack. Echo 60 percent ejection fraction. [place] to be noncardiac chest pain and cleared for discharge. He will follow up with his primary Dr regarding his PVCs. Consults/Reason for consult Cardiology Operations or Procedures Echocardiogram Condition at Discharge: Fair Final Diagnosis/Problems List Non Cardiac chest pain, troponin negative x3 aspirin Lipitor consult for Dr. Mccormack appreciated, echo 60 percent ejection fraction, no further cardiac workup, cleared for discharge Seizures Keppra Bilateral leg edema History of PVCs patient follow up with his primary video game technician as an outpatient Anxiety Nicotine abuse: Counseled Irritable bowel syndrome GERD X-ray negative DVT ruled out Discharge Disposition: Home Discharge Instruct/Medications Diet: Cardiac 2g Na,low cholest Activity: No Restrictions, As Tolerated Follow Up/Referral: Follow up with the primary video game technician regarding PVCs Medications: None Scheduled Levetiracetam (Keppra), 1.5 TAB PO BID, (Reported) Pantoprazole Sodium Sesquihydr (Protonix), 40 MG PO DAILY, (Reported) 35 (Time taken for discharge summary 35 minutes) Discharge Statement: "Patient was advised to return to the ER or call 911 if any headaches, dizziness, shortness of breath, chest pain, abdominal pain, bleeding, fevers, or worsening of medical condition. Patient was counseled about treatment plan, medications, possible side effects, patientverbalized understanding. All questions were answered to the best of my ability. This discharge took greater then 30 minutes in planning, reviewing documentation, counseling the patient, and discussing with other team members." ASSESSMENT ASSESSMENT Hospital Course Improved Assessment Non Cardiac chest pain, troponin negative x3 aspirin Lipitor consult for Dr. Mccormack appreciated, echo 60 percent ejection fraction, no further cardiac workup, cleared for discharge Seizures Keppra Bilateral leg edema History of PVCs patient follow up with his primary video game technician as an outpatient Anxiety Nicotine abuse: Counseled Irritable bowel syndrome GERD X-ray negative DVT ruled out Date of Service: May 24, 2025 Billing Provider: CLARE DAIGLE MD Common Visit Codes: [id number] DISCH DAY >30min CLARE DAIGLE MD May 24, 2025 09:23
[2025-05-24 10:24] VITALS: BP 130/78; PULSE 76; RESP 20; TEMP 98.1; O2SAT 97
== END 2025-05-24 12:20 | disposition home or self-care (01) | DRG 313 ==
LOC: ER 20:50 → OVERFLOW 05-22 00:14 → TELE-WESTW 05-22 13:48
PROVIDERS: ADMIT Family Medicine; ATTEND Family Medicine
DX: R07.89 Other chest pain (principal); G40.909 Epilepsy, unspecified, not intractable, without status epilepticus; K58.9 Irritable bowel syndrome, unspecified; K21.9 Gastro-esophageal reflux disease without esophagitis; E66.9 Obesity, unspecified; F17.210 Nicotine dependence, cigarettes, uncomplicated; F41.9 Anxiety disorder, unspecified; E78.5 Hyperlipidemia, unspecified; R74.01 Elevation of levels of liver transaminase levels; Z82.49 Family history of ischemic heart disease and other diseases of the circulatory system; Z83.3 Family history of diabetes mellitus; Z91.018 Allergy to other foods; Z88.1 Allergy status to other antibiotic agents; Z79.899 Other long term (current) drug therapy; Z68.38 Body mass index [BMI] 38.0-38.9, adult
CPT/HCPCS: 36415; 71046; 80048; 80053; 80307; 80320; 81001; 83036; 83735; 83880; 84443; 84484; 85025; 93005; 93306; 93970; G0378